=== PATIENT | female | born 1980 | race Caucasian/White ===

== ENCOUNTER 2017-03-28 13:14 | Emergency (ER) | payer SELFPAY ==
[~2017-03-28] VITALS: Ht 167.6 cm; Wt 136.8 kg
[~2017-03-28 13:14] MED LIST: AUGMENTIN875 MG PO; BACTRIM,SEPT1 TABLET PO; CLEOCIN300 MG PO; COLACE100 MG PO; FLEXERIL10 MG PO; KEFLEX500 MG PO; LORTAB 5-325 M1 EACH PO; NAPROSYN500 MG PO; NAPROXEN500 MG PO; NORCO 5/3251 TABLET PO; PERIDEX1 ML MM; SENNA8.6 M1 PO; ULTRAM50 MG PO; VICODIN,LORT1 TABLET PO
[2017-03-28] MEDS ORDERED: BACTRIM,SEPT1 TABLET PO (15:22)
[2017-03-28] MEDS ORDERED: KEFLEX500 MG PO (15:22)
[2017-03-28] MEDS ORDERED: ULTRACET1 TABLET PO (15:24)
[2017-03-28 16:13] VITALS: BP 128/80
== END 2017-03-28 16:15 | disposition home or self-care (01) ==
LOC: EME 13:14
DX: L02.211 Cutaneous abscess of abdominal wall (principal); F17.200 Nicotine dependence, unspecified, uncomplicated

== ENCOUNTER 2017-03-31 13:08 | Emergency (ER) | payer SELFPAY ==
[~2017-03-31] VITALS: Ht 167.6 cm; Wt 136.9 kg
[~2017-03-31 13:08] MED LIST changes: +ULTRACET1 TABLET PO
[2017-03-31 19:51] VITALS: BP 116/70
== END 2017-03-31 19:52 | disposition home or self-care (01) ==
LOC: EME 13:08
PROC: 0H97XZZ Drainage of Abdomen Skin, External Approach (ICD-10-PCS; principal; 2017-03-31)
DX: L02.211 Cutaneous abscess of abdominal wall (principal); F17.200 Nicotine dependence, unspecified, uncomplicated; Z88.6 Allergy status to analgesic agent
CPT/HCPCS: 87070; 87075; 87076; 87205; 99281; 99284; J3010